=== PATIENT | female | born 1940 | race African-American/Black ===

== ENCOUNTER 2016-09-09 13:00 | Outpatient (RCR) | payer MEDICARE, OTHER ==
[~2016-09-09 13:00] MED LIST: CELEXA 20MG20 MG/TAB PO; MEGACE20 MG PO; PRILOSEC 20MG20 MG PO; PRINIVIL20 MG PO; PRINZIDE 25 MG-1 TAB PO; REMERON30 MG PO; SYNTHROID0.088 MG/T PO; TIAZAC120 MG PO; XANAX 0.5MG0.5 MG PO
== END 2016-12-01 | disposition home or self-care (01) ==
LOC: WSST
DX: K22.0 Achalasia of cardia (principal); R13.10 Dysphagia, unspecified
CPT/HCPCS: G8996-GN; G8997-GN